=== PATIENT | female | born 1985 | race Caucasian/White ===

== ENCOUNTER 2022-05-31 07:22 | Outpatient (REF) | payer OTHER, SELFPAY ==
--- NOTE | ~2022-05-31 | MR_ITS ---
EXAMINATION: MR SHOULDER WITHOUT CONTRAST, LEFT CLINICAL INFORMATION: Left shoulder pain, increased with movement. Popping and clicking. Weakness. COMPARISON: None TECHNIQUE: Multisequence MR imaging of the left shoulder was obtained without contrast on a high-field strength scanner. FINDINGS: ROTATOR CUFF: Intact. No muscle atrophy or fatty infiltration. BICEPS: Intact. CORACOACROMIAL ARCH: The undersurface of the acromion is minimally curved with no subacromial spur. The acromioclavicular joint is normal. Mild fluid and edema within the subacromial-subdeltoid bursa consistent with bursitis. LABRUM/CAPSULE: No displaced labral tear. Intact joint capsule. GLENOHUMERAL JOINT/MARROW: Intact articular cartilage. No acute osseous injury. MR/MR shoulder LT wo con IMPRESSION: 1. Mild subacromial-subdeltoid bursitis. 2. Otherwise unremarkable examination.
== END 2022-05-31 07:23 | disposition home or self-care (01) ==
LOC: HO.MRI 07:22
PROVIDERS: Visit Provider Nurse Practitioner Family
DX: M25.512 Pain in left shoulder (principal)
CPT/HCPCS: 73221

== ENCOUNTER 2024-11-28 09:03 | Outpatient (AMB) | payer BC, SELFPAY ==
--- NOTE | 2024-11-28 09:07 | A.SPINEOV_ITS ---
Vital Signs 11/28/24 09:10 Height 5 ft 4 in Weight 130 lb BMI 22.3 Intake Visit Reasons: Back pain Intake Note: Ms. Dominguez is here today c/o Right sided low back pain. 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 Required: No Allergies cefaclor [From Ceclor] Allergy (Severe, Verified 11/28/24 09:12) Unknown Physical Exam Vital Signs: BMI result Body Mass Index 22.3 Assessment & Plan Assessment & Plan (1) Back pain: Code(s): M54.9 - Dorsalgia, unspecified Category: Medical Qualifiers: Back pain laterality: right Back pain location: low back pain Sciatica presence: with sciatica Plan: Dear colleague On 11/28/2024 I saw for 2nd opinion Omayra Dominguez with a chief complaint of predominantly right-sided back pain HPI: This is a 39-year-old otherwise healthy female had a snowboard accident in last November and since that time is suffering from severe discomfort predominantly on the right side around the SI joint area. Sitting very uncomfortable. Her sleep is not disturbed. When the pain flares up it can radiate down her right leg. No weakness or numbness. She tried extensive physical therapy without success. Chiropractic therapy is not helpful either. An injection in the SI joint did not provide relief. She has not tried an SI joint belt. PMH: Right shoulder surgery Medications: None Allergies: Ceclor Social history: Nonsmoker. 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 Not in obvious agony. SI provocative tests are negative. Straight leg raise is negative. No motor or sensory deficits. His pain on palpation of the right SI joint area Radiological Studies: A CT scan of the lumbar spine shows no fractures Impression/Plan: This patient is suffering from persistent predominantly right- sided pain around the SI joint area with intermittent radiation down her right leg. Differential diagnosis is sacroiliitis versus lumbar radiculopathy. I would like to order an MRI of the lumbar spine and to refer to Dr. Díaz for further evaluation of her SI joint. I explained to the patient that sacroiliitis usually characterized by a 70% or more response to a diagnostic SI joint block. She will return to my office if the SI joint block is successful. Thank you for allowing me to participate in your patients care. total time spent was 50 minutes in counseling ,coordination of plan, personal review of imaging, surgical decision making and subsequent plan Miguel A Loja MD, PhD Spine Fellowship Trained Neurosurgeon Director, [facility] (2) Sacroiliitis, not elsewhere classified: Code(s): M46.1 - Sacroiliitis, not elsewhere classified Category: Medical Plan: d Orders: Orders MR lumbar spine wo con Today M54.9 - Dorsalgia, unspecified Referrals Pain Management Referral M46.1 - Sacroiliitis, not elsewhere classified Coding Level of Care Code New Pt Level 4 (48877) Diagnoses Back pain M54.9 Back pain laterality: right Back pain location: low back pain Sciatica presence: with sciatica Sacroiliitis, not elsewhere classified M46.1
[2024-11-28 09:10] VITALS: BMI 22.3
--- OUTSIDE RECORDS SUMMARY | 2024-11-28 09:15 | XMS_ITS | Patient Health Record ---
[facility] Address [address] [place] [address] Care Team Providers Care Certified Massage Therapist Name Role Phone Dinah Stevenson MD Primary Care Provider Eddie Gomes Unavailable [phone] Allergies Allergen (clinical drug ingredient) Drug/Non Drug Allergy documented on EMR Reaction Allergy Type Onset Date Status Ceftin Unknown Drug Allergy Active Keflex Unknown Drug Allergy Active cefaclor Cefaclor Unknown Drug Allergy Active Reason For Referral No Information Medications Medication SIG (Take, Route, Fr equency, Duration) Notes Start Date End Date Status Altavera Control Active Ibuprofen PRN 400mg Active Voltaren 1 % as directed Externally 11/02/2023 Active Naproxen Sodium PRN 400mg Acti ve Immunizations Vaccine Route Administration Date Status Comme nts COVID-19 Moderna Vaccine Unknown 08/27/2021 Administere d 01/05/21,02/02/21 Social History Tobacco Use: Social History Observation Description Date Details (start date - stop date) Never Smoker NA - NA Tobacco Use/Smoking Question Answer Notes Are you a: nonsmoker Additional Findings: Tobacco Non-User Current no n-smoker Alcohol Screen Question Answer Notes Did you have a drink containing alcohol in the p ast year? No Points 0 Interpretation Negative Tobacco use other than smoking: Question Answer Notes Are you an other tobacco user? No Problems Problem Type SNOMED Code ICD Code Onset Dates Problem Status W/U Status Risk Notes Problem Acquired hallux valgus (15406063) Hallux valgus (acquired), left foot (M20.12) Active confirmed Problem Acquired hallux valgus (14235360) Hallux valgus (acquired), right foot (M20.11) Active confirmed Problem Acquired hammer toe of right foot ([id number] [id number]) Other hammer toe(s) (acquired), right foot (M20.41) Active confirmed Problem Acquired hallux rigidus (3197193) Hallux rigidus, right foot (M20.21) Active confirmed Plan Of Treatment Pending Test Test Name Order Date X ray : Foot, left 3V 11/25/2022 X ray : Foot, right 3V 11/02/2023 Insurance Providers Payer Name Payer Address Payer Phone Subscriber Number Group Number Insured Name Patient Relationship to Insured Coverage Start Date Coverage End Date [facility] Others [address] [place] [address] [phone] [id number] Omayra Dwyer Self - patient is the insured Medical (General) History Medical History History ICD Code Headaches/Migraines Plantar warts Surgical History Surgery Date(Month/Year)
--- OUTSIDE RECORDS SUMMARY | 2024-11-28 09:15 | XMS_ITS | Encounter Summary ---
Author Organization [employer] Address [address] [place] [address] [address] [place] [address] Care Team Providers Care Cafeteria Food Server Name Role Phone Chary Brooks CNP Primary Care Provider [phone] Encounter Details Date Type Department Care Team (Latest Contact Info) Description 07/31/2019 Abstract [facility] CONVERSIONS Dental, Provider, DDS Social History Tobacco Use Types Packs/Day Years Used Date Smoking Tobacco: Never Assessed Comments Unknown Sex and Gender Information Value Date Recorded Sex Assigned at Female 05/05/2023 9:04 AM EDT Legal Sex Female 5:36 PM EDT Gender Identity Female 05/05/2023 9:04 AM EDT Sexual Orientation Straight 05/09/2023 8: 14 AM EDT documented as of this encounter Plan of Treatment Upcoming Encounters Date Type Department Care Team (Late st Contact Info) Description 09/17/2025 4:30 PM EST Office Visit [facility] [address] [place] [address] Chary Brooks CNP [address] [place] [address] documented as of this encounter Visit Diagnoses Not on filedocumented in this encounter Care Teams Cafeteria Food Server Relationship Specialty Start Date End Date Chary Brooks CNP [address] [place] [address] PCP - General Family Medicine 04/24/23 documented as of this encounter
--- OUTSIDE RECORDS SUMMARY | 2024-11-28 09:15 | XMS_ITS ---
Author Organization [facility] Address [address] [place] [address] Care Team Providers Care Head Start Director Name Role Phone Dinah Stevenson MD Primary Care Provider Eddie Gomes [phone] Allergies Allergen (clinical drug ingredient) Drug/Non Drug Allergy documented on EMR Reaction Allergy Type Onset Date Status Ceftin Unknown Drug Allergy Active Keflex Unknown Drug Allergy Active cefaclor Cefaclor Unknown Drug Allergy Active REASON FOR VISIT Foot pain Medications Medication SIG (Take, Route, Fr equency, Duration) Notes Start Date End Date Status Altavera Control Active Ibuprofen PRN 400mg Active Voltaren 1 % as directed Externally 11/02/2023 Active Naproxen Sodium PRN 400mg Acti ve Social History Tobacco Use: Social History Observation [...] Are you an other tobacco user? No Vital Signs Height 5 ft 4 in in 11/02/2023 Weight 120 lbs 11/02/2023 BMI 20.6 kg/m2 11/02/2023 Encounters Encounter Location Date Provider Diagnosis [facility] [address] [place] [address] 11/02/2023 Eddie Bautista Peroneal tendinitis, right M76.71 ; Pain in right foot M79.671 and Metatarsalgia, right foot M77.41 Assessments Encounter Date Diagnosis (ICD Code) Assessment Notes Treatment Notes Treatment Clinical Notes Section Notes 11/02/2023 Peroneal tendinitis, right (ICD-10 - M76.71) 11/02/2023 Pain in right foot (ICD-10 - M79.671) 11/02/2023 Metatarsalgia, right foot (ICD-10 - M77.41) Plan Of Treatment Medication Medication Name Sig Start Date Stop Date Notes Voltaren 1 % as directed Externally 11/02/2023 Pending Test Test Name Order Date X ray : Foot, right 3V 11/02/2023 Next Appt Details Follow Up: prn, Reason: Progress Notes * Omayra CALABRESE EDOB: [birth year] (37 yo F)Acc No.[id number]:11/02/2023 Progress Note Patient:?Omayra Calabrese Provider:?Eddie Bautista DPM :1985???Age:37 Y???Sex:Female D ate:11/02/2023 Address[address] [facility], [place], [place] Pcp:Dinah Stevenson MD Subjective: * Chief Complaints: * ???Foot pain * HPI: ???Foot Pain:?Nature:?aching, dull, sharp.?Location?Outside, Midfoot, Rearfoot, Right .?Duration:?several months.?Onset/Cause:?unknown, denies trauma.?Course:?worse.?Aggrevated:?any pressure, standing, walking; certain motion.?Treatments:?stretching.?Quality/Severity?5, scale 1-10.? * ROS:?General/Constitutional:?Nausea?denies, denies.?Vomiting?denies, denies.?Hunger Thirst?denies, denies.?Loss appetite?denies, denies.?Chills?denies, denies.?Fatigue?denies, denies.?Fever?denies, denies.?Night Sweats denies, denies.?Unexplained weight loss?denies, denies.?Unexplained weight gain?denies.?Ophthalmologic:?Blurred vision?denies.?Red eye?denies.?HEENTM:?Dentures?denies, denies.?Dizziness?denies, denies.?Glasses/contacts?denies, denies.?Retinopathy?denies, denies.?Blurred/double vision?denies, denies.?TMJ?denies, denies.?Discharge/drainage?denies, denies.?Implants?denies, denies.?Sore throat?denies.?Dental implants?denies.?Hard of hearing ?denies, denies.?Difficulty chewing/swallowing/speaking?denies, denies.?Nose bleeds?denies, denies.?Sore mouth?denies, denies.?Swollen glands?denies.?Respiratory:?On Oxygen?denies, denies.?Pneumonia/pleurisy?denies, denies.?Bronchitis?denies, denies.?Emphysema?denies, denies.?Coughing?denies, denies.?Cough blood?denies, denies.?Shortness of breath?denies, denies.?Wheezing?denies, denies.?Cardiovascular:?Pacemaker?denies, denies.?MVP?denies, denies.?WPW?denies, denies.?CHF?denies, denies.?Heart attack?denies, denies.?Septal defect?denies, denies.?Rapid beat?denies, denies.?Chest pain ?denies, denies.?Atrial Fib.?denies, denies.?Murmur/Palpitations?denies, denies.?Gastrointestinal:?Hemorrhoids?denies, denies.?Stomach/Abdominal pain?denies, denies.?Dark blood stool?denies, denies.?Irritable bowel ?denies, denies.?Constipation?denies, denies.?Diarrhea?denies, denies.?Vomiting?denies.?Hematology:?Swelling?denies, denies.?Clots?denies.?Varicose Veins?denies.?Bruising?denies, denies.?Bleeding problem?denies, denies.?Genitourinary:?Blood urine?denies, denies.?Frequent/Painfu/urination/bladder control?denies, denies.?Kidney stones?denies, denies.?Infection (UTI)?denies, denies.?Nephropathy?denies, denies.?sex trans dis (STD)?denies.?Prostate?denies.?Musculoskeletal:?Hammertoes?denies, denies.?Bunions?denies, denies.?Scoliosis/kyphosis?denies.?Back Pain?denies.?Muscle Cramps/ Resting?denies.?Muscle cramps / walking?denies, denies.?Generalized aches and pains?admits, denies.?Weakness?denies, denies.?Integ.:?Barnes?denies, denies.?Scars?denies, denies.?Corns/calluses?denies, denies.?Ingrown nails?denies, denies.?Painful nails?denies, denies.?Open Sores?denies.?Rashes?denies, denies.?Neurologic:?Difficulty sleeping?denies, denies.?Bipolar?denies.?Brain disorder?denies, denies.?Numbness?denies.?Balance trouble?denies, denies.?Confusion?denies, denies.?Fainting/blackouts?denies, denies.?Headache?denies.?Tingling?denies.?Tremors?denies, denies.? * Medical History:? * Surgical History:?No Surgica l History documented. * Hospitalization/Major Diagno stic Procedure:?No Hospitalization History. * Family History:?Mother: richardson schwartz, Foot problems, diagnosed with Other specified conditions influencing health status.?Father: alive.?Maternal Grand Mother: Cancer, diagnosed with Other malignant neoplasm of unspecified site.? * Social History:?Tobacco Use:?Tobacco Use/Smoking?Are you a:?nonsmoker ?Additional Findings: Tobacco Non-User?Current non-smoker ?Tobacco use other than smoking?Are you an other tobacco user??No ???Drugs/Alcohol:?Alcohol Screen?Did you have a drink containing alcohol in the past year??No ?Points?0 ?Interpretation?Negative * Medications:?TakingAltavera , Notes: ControlIbuprofen , Notes: PRN 400mgNaproxen Sodium , Notes: PRN 400mgMedication List reviewed and reconciled with the patientTaking Altavera , Notes: ControlTaking Ibuprofen , Notes: PRN 400mgTaking Naproxen Sodium , Notes: PRN 400mgMedication List reviewed and reconciled with the patient * Allergies:?Keflex: AllergyCe ftin: AllergyCefaclor: Allergyyes[Allergies Verified] Objective: * Vitals:?Ht:5 ft 4 in, Wt:120 , BMI:20.6, Shoe size:7.5-8, Ht-cm: 162.56 cm, Wt- k.43 kg. * Examination: ???General Examination: ?GENERAL APPEARANCE:?pleasant, alert, well nourished, well developed, well hydrated, with good attention to hygene/body habitus, and in no acute distress.?ORIENTED:?person,place, and time.?Neurological: ?SENSORY:?Neurological exam is normal, pain sensation normal, vibration sensation intact, pinprick sensation is normal in the lower extremities, denies, tingling, burning, anesthesia, paresthesia, hyperesthesia, B/L, Neurological exam demonstrates pop right peroneal tendon and into 5th mt base.?TINEL'S COMPRESSION:?Negative tarsal tunnel, yuri pedis, and medial calcaneal nerves B/L.?BABINSKI REFLEX:?absent.?Neuroma Pain: ?PALPATION:?No interspace pain noted on palpation.?Vascular: ?DP PULSES:?11/13, B/L.?PT PULSES:?11/13, B/L.?CAPILLARY FILL TIME:?3 secs. per digit, B/L.?SKIN TEMPERTURE GRADIENT OF THE LOWER EXTERMITIES:?warm to cool, proximal to distal, B/L.?HAIR GROWTH/TEXTURE/ELASTICITY/TURGOR:?normal, B/L.?PIGMENTATION:?normal, B/L.?EDEMA:? /, Right 5th mt base.?TELANGECTASIA:?absent.?VARICOSITIES:?absent.?Dermatologic: ?SKIN FINDINGS:?Skin exam reveals normal texture, elasticity, and tugor. There are no masses. The interspaces are clear, B/L .?Orthopedic: ?MUSCLE STRENGTH:?5/5 all groups in a symmetrical fashion , B/L.?GAIT ABNORMALITY:?pronated, abducted, B/L.?X-Rays - IMAGING REPORT: ?Clinical Indication(s):? Evaluate Biomechanical Deformity.?Views:? 3 views of Foot, RIGHT.?Findings:? normal bone and soft tissue density consistent for patients age and sex, hypertrophy of 5th MT Base/Styloid process--mild.?Foot structure:? reveals excess pronation with, anterior break in cyme line-mild.? Assessment: * Assessment: 1.?Pain in right foot - M79. 671?2.?Peroneal tendinitis, right - M76.71 (Primary)?3.?Metatarsalgia, right foot - M77.41? Plan: * Treatment: 2.?Pain in right foot?Imaging: X ray : Foot, right 3V * Procedure Codes:?64169 X-RAY EXAM OF RIGHT FOOT 3V, Modifiers: 26 , RT * Preventive Medicine:? ??Counseling:?Discussion:?-14: Office or other outpatient visit for the evaluation and management of an established patient, which required a medically appropriate history and/or examination and MODERATE level of DECISION MAKING for: 1 OR MORE CHRONIC PROBLEM(S) THATS WORSENING, 2 STABLE CHRONIC PROBLEMS, A NEWLY DIAGNOSED PROBLEM WITH UNCERTAIN PROGNOSIS, AN ACUTE COMPLICATED INJURY WITH MULTIPLE TREATMENT OPTIONS, OR AN ACUTE PROBLEM WITH ACCOMPANYING SYSTEMIC SYMPTOMS, THAT POSE(S) A MODERATE RISK OF MORBIDITY. THIS CONDITION MAY ALSO INCLUDE RX DRUG MANAGEMENT, OR A DECISON FOR MINOR SURGERY. The visit on the day of the encounter encompassed interpreting the data and educating the patient as to the nature of their condition, treatment options available according to their individual PMH, meds, allergies, and overall health/living conditions, as well as any potential risks or complications that may occur from a failure to adhere to, and participate in, the recommended course of therapy. The discussion included a complete verbal, and/or written explanation of the examination results, any x-rays taken, the proposed diagnosis, and outline of the treatment plan. A schedule for future care needs was also explained. The patient verbalized an understanding of the instructions at this time and agreed to be an active participant in their treatment. If the patient should think of any questions or concerns after the visit, I have encouraged the patient to call the office.?P.R.I.C.E.:?The patient was counseled on the use of P.R.I.C.E. and NSAIDS (if well tolerated) to aid in the recovery from their painful condition.?Physical Therapy:?Discussed the potential short and terminal superintendent benefits of physical therapy including pain relief, improved function for activity of daily life, return to exercise, increased quality of life. We discussed the usual/customary PT treatment schedule of 2-3 times per week for 4 weeks to as much as 12 weeks depending on insurance approval/coverage. We discussed various PT treatment modalities including, but not limited to, gate training, muscular stabilization, stretching, deep tissue therapeutic massage, ultrasound, TENS, iontophoresis, fluidotherapy, laser therapy, hydrotherapy, contrast ice/heat bath, and passive as well as active ROM exercises. Questions re: PT including visit amounts, rates of success, and goals were answered to the patient's satisfaction. The patient verbally confirmed the medical necessity and use of PT therapy treatment for their MSK condition, Pt defers on therapy at this time.? * Follow Up:?prn * Images: * Sign off status: Completed true * Provider:?Eddie Bautista DPM Date:? 024 Generated for Karen heredia/Pilo/Franchesca on:?11/28/2024 09:15 AM EST History and Physical Notes * HPI (History of Present Illness) Category Sub-Category Detail Notes Category Not es Foot Pain Aggrevated: any pressure, standing, walk ing; certain motion Onset/Cause: unknown, denies myra felipe Course: worse Duration: several months Nature: aching, dull, sharp Treatments: stretching Quality/Severity 5, scale 1-10 Location Outside, Midfoot, Re arfoot, Right Examination Category Sub-Category Detail Notes Category Not es Neuroma Pain PALPATION: No interspace pain noted on palpation Neurological SENSORY: Neurological exa m is normal, pain sensation normal, vibration sensation intact, pinprick sensation is normal in the lower extremities, denies, tingling, burning, anesthesia, paresthesia, hyperesthesia, B/L, Neurological exam demonstrates pop right peroneal tendon and into 5th mt base BABINSKI REFLEX: absent TINEL'S COMPRESSION: Negative tarsal neelam nixon, yuri pedis, and medial calcaneal nerves B/L Dermatologic SKIN FINDINGS: Skin exam reveal s normal texture, elasticity, and tugor. There are no masses. The interspaces are clear, B/L Orthopedic GAIT ABNORMALITY: pronated, abducted, B/L MUSCLE STRENGTH: 5/5 all groups in a symmetrical fashion , B/L General Examination GENERAL APPEARANCE: pleasant , alert, well nourished, well developed, well hydrated, with good attention to hygene/body habitus, and in no acute distress ORIENTED: person,place, and ti me Vascular DP PULSES (B): 2/4, B/L PT PULSES (B): 2/4, B/L CAPILLARY FILL TIME: 3 secs. per digit, B/L TEMPERTURE GRADIENT (C): warm to cool, p roximal to distal, B/L TROPHIC CONDITION-TEXTURE/ELASTICITY/TURGOR/HAIR GROWTH (B): normal, B/L EDEMA (C): 1/, Right 5th mt ba se TELANGECTASIA: absent VARICOSITIES: absent PIGMENTATION: normal, B/L X-Rays - IMAGING REPORT Findings: normal b one and soft tissue density consistent for patients age and sex, hypertrophy of 5th MT Base/Styloid process--mild Foot structure: reveals excess prona tion with, anterior break in cyme line-mild Views: 3 views of Foot, RIG HT Clinical Indication(s): Evaluate Biomech anical Deformity
--- OUTSIDE RECORDS SUMMARY | 2024-11-28 09:15 | XMS_ITS | Encounter Summary ---
Author Organization [employer] Address [address] [place] [address] [address] [place] [address] Care Team Providers Care Maintenance Worker House Trailer Name Role Phone Chary Brooks CNP Primary Care Provider [phone] Encounter Details Date Type Department Care Team (Latest Contact Info) Description 01/23/2019 Abstract [facility] CONVERSIONS Dental, Provider, DDS Social [...] Description 09/17/2025 4:30 PM EST Office Visit [facility] [address] [place] [address] Chary Brooks CNP [address] [place] [address] documented as of this encounter Visit Diagnoses Not on filedocumented in this encounter Care Teams Maintenance Worker House Trailer Relationship Specialty Start Date End Date Chary Brooks CNP [address] [place] [address] PCP - General Family Medicine 04/24/23 documented as of this encounter
--- OUTSIDE RECORDS SUMMARY | 2024-11-28 09:15 | XMS_ITS | Encounter Summary ---
Author Organization [employer] Address [address] [facility] 7[address] [place] [address] Care Team Providers Care Rear Admiral Name Role Phone Chary Brooks DOROTHY Primary Care Provider [phone] Encounter Details Date Type Department Care Team (Late st Contact Info) Description 09/16/2024 Orders Only [facility] [address] [place] [address] Provider, MD Margarito Social History Tobacco Use Types Packs/Day Years Used Date Smoking Tobacco: Never Smokeless Tobacco: Never Alcohol Use Standard Drinks/Week Comments Not Currently 0 (1 standard drink = 0.6 oz pur e alcohol) Housing Stability Answer Date Recorded What is your housing situation today? I have lopez sun 09/11/[address] you li ve. Do you have problems with any of the following? None of the above 09/11/2024 Food Insecurity Answer Date Recorded Within the past 12 months, y ou worried that your food would run out before you got money to buy more: Never True 09/11/2024 Within the past 12 months,th e food you bought just didn't last and you didn't have enough money to get more: Never True 12/2023 Transportation Answer Date Recorded In the past 12 months, has l ack of transportation kept you from medical appts, meetings, work or from getting things needed for daily living? No 09/11/2024 Utilities Answer Date Recorded In the past 12 months, has t he electric, gas, oil or water company threatened to shut off services in your home? No 09/11/2024 Depression Answer Date Recorded Patient Health Questionnaire-2 Score 0 09/11/2024 Internet Access Answer Date Recorded Internet Access Q1 Yes 09/11/2024 Internet Access Q2 Not on file 09/11/2024 Comments Unknown Sex and Gender Information Value [...] Description 09/17/2025 4:30 PM EST Office Visit [facility] MEDICAL [address] [facility] [place] [address] Chary Brooks CNP [address] [facility] [place] [address] documented as of this encounter Procedures Procedure Name Priority Date/Time Associated Diagnosis Comments CT LUMBAR SPINE W CONTRAST Routine 06/15/2024 9:53 AM EDT HM PAP/HPV Routine 02/02/2024 9:54 AM EDT documented in this encounter Results * CT Lumber Spine w/ Contrast (06/15/2024 9:53 AM EDT) Anatomical Region Laterality Modality Spine, L-spine Computed Tomogra phy us Historical Provider IMG CT PROCEDURES Final R esult * HM PAP/HPV (02/02/2024 9:54 AM EDT) us Historical Provider HEALTH MAINTENANCE Final Result documented in this encounter Visit Diagnoses Not on filedocumented in this encounter Care Teams Rear Admiral Relationship Specialty Start Date End Date Chary Brooks CNP [address] [facility] [place] [address] PCP - General Family Medicine 04/24/23 documented as of this encounter
--- OUTSIDE RECORDS SUMMARY | 2024-11-28 09:15 | XMS_ITS | Data Portability ---
Author Organization [facility], [facility] [employer] Address [address] [place] [address] Care Team Providers Care Branch Service Associate Name Role Phone CLAUDETTE FRANCOIS Primary Care Provider Assessment Encounter Date Assessment Date Assessment LastModified by Organization Details LastModified Time 11/02/2024 11/02/2024 Assessment: Introduced prone periscapular strengthening, patient able to tolerate well with mild fatigue reported post, mild upper trap compensation initially but able to correct after verbal and tactile cues. Moderate fatigue with SL ER. Plan: Continued PT is recommended at 2x/week for 6 weeks to decrease pain, improve ROM, increase strength, and optimize shoulder mechanics for functional ADL's. PROM/AAROM/AROM now No lifting heavier than coffee cup x 4-6 weeks Strengthening at 4-6 weeks once full ROM Not available 11/02/2024 09:22:36 11/05/2024 11/05/2024 Assessment: Patient fatigued with all periscap strengthening. She tolerated all prone stability ball exercises with decreased core stability . Plan: Continued PT is recommended at 2x/week for 6 weeks to decrease pain, improve ROM, increase strength, and optimize shoulder mechanics for functional ADL's. PROM/AAROM/AROM now No lifting heavier than coffee cup x 4-6 weeks Strengthening at 4-6 weeks once full ROM Not available 11/05/2024 18:54:46 11/07/2024 11/07/2024 Assessment: Patient continues to fatigue with all periscap strengthening. Decreased shoulder abduction weight to improve mechanics. Updated HEP for foam roller and stability ball exercises. Plan: Continued PT is recommended at 2x/week for 6 weeks to decrease pain, improve ROM, increase strength, and optimize shoulder mechanics for functional ADL's. PROM/AAROM/AROM now No lifting heavier than coffee cup x 4-6 weeks Strengthening at 4-6 weeks once full ROM Not available 11/07/2024 17:38:13 11/12/2024 11/12/2024 Assessment: Tolerates scapular clocks without increased pain and moderate fatigue reported post, requires tactile cues initially to prevent lumbar extension/scapu lar winging, corrects well after cues. Plan: Continued PT is recommended at 2x/week for 6 weeks to decrease pain, improve ROM, increase strength, and optimize shoulder mechanics for functional ADL's. PROM/AAROM/AROM now No lifting heavier than coffee cup x 4-6 weeks Strengthening at 4-6 weeks once full ROM [email or web address] Not available 11/13/2024 08:06:44 11/14/2024 11/14/2024 Assessment: Moderate upper trap compensation with Y raises with resistance, able to complete without resistance with appropriate mechanics. Continues to fatigue quickly with scapular clocks and scap wall slides. Plan: Continued PT is recommended at 2x/week for 6 weeks to decrease pain, improve ROM, increase strength, and optimize shoulder mechanics for functional ADL's. PROM/AAROM/AROM now No lifting heavier than coffee cup x 4-6 weeks Strengthening at 4-6 weeks once full ROM [email or web address] Not available 11/14/2024 16:24:25 Plan of Treatment Reminders Order Date Submit Date Provider Last Modified By Organization Details Last Modified Time Details Appointments PT FOLLOW -UP 025 04:30PM Hayde Landrum, PT Not available Not available Not available PT FOLLOW -UP 025 08:30AM Ladonna Frey FISH CONSERVATIONIST Not available Not available Not available PT FOLLOW -UP 025 04:30PM Hayde Diallo, PT Not available Not available Not available PT FOLLOW -UP 025 04:00PM Hayde Sawyer, PT Not available Not available Not available Lab None record ed. Referral None record ed. Procedures None record ed. Surgeries None record ed. Imaging None record ed. Medication Orders None record ed. Patient TargetsNo targets recorded. Patient InstructionsNo instructions recorded. Reason for Referral None Reported. 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 Procedures Surgical History Date Name Laterality Status Provider Name and Address Organization Details Recorded Time 5 46410 Therapeutic Exercise (1:1) completed Hayde Diallo, PT [address], [place], [address], [facility] 10/31/2024 10:21:10 5 03005: Hot or Cold Pack completed Hayde Diallo, PT [address], [place], [address], [facility] 10/31/2024 10:21:10 5 45847 Therapeutic Exercise (1:1) completed Hayde Diallo, PT [address], [place], [address], [facility] 10/24/2024 10:38:01 5 07498: Hot or Cold Pack completed Hayde Sawyer, PT [address], [place], [address], [facility] 10/24/2024 10:38:01 5 85881 Therapeutic Exercise (1:1) completed Ladonna Shante, FISH CONSERVATIONIST [address], [place], [address], [facility] 10/22/2024 18:32:59 5 80716: Hot or Cold Pack completed Ladonna Shante, FISH CONSERVATIONIST [address], [place], [address], [facility] 10/22/2024 18:33:13 5 00764 Therapeutic Exercise (1:1) cancelled Hayde Diallo, PT [address], [place], [address], [facility] 10/17/2024 10:28:14 5 76581: Hot or Cold Pack cancelled Hayde Sawyer, PT [address], [place], [address], [facility] 10/17/2024 10:28:14 5 52193 Therapeutic Exercise (1:1) completed Hayde Diallo, PT [address], [place], [address], [facility] 10/15/2024 10:22:32 5 39424: Hot or Cold Pack completed Hayde Diallo, PT [address], [place], [address], [facility] 10/15/2024 10:22:32 5 02634 Therapeutic Exercise (1:1) completed Hayde Sawyer, PT [address], [place], [address], [facility] 10/12/2024 09:25:21 5 72737: Hot or Cold Pack completed Hayde Sawyer, PT [address], [place], [address], [facility] 10/11/2024 18:48:41 4 87113 Therapeutic Exercise (1:1) completed Hayde Sawyer, PT [address], [place], [address], [facility] 10/08/2024 15:03:29 4 29863: Hot or Cold Pack completed Hayde Diallo, PT [address], [place], [address], [facility] 10/08/2024 18:39:53 4 33365 Therapeutic Exercise (1:1) completed Hayde Diallo, PT [address], [place], [address], [facility] 09/26/2024 17:19:50 4 04851: Hot or Cold Pack completed Hayde Diallo, PT [address], [place], [address], [facility] 09/26/2024 17:19:50 4 45552 Therapeutic Exercise (1:1) completed Hayde Diallo, PT [address], [place], [address], [facility] 09/24/2024 18:42:47 4 33391: Hot or Cold Pack completed Hayde Diallo, PT [address], [place], [address], [facility] 09/24/2024 10:40:39 4 97728 Therapeutic Exercise (1:1) completed Ladonna Shante, FISH CONSERVATIONIST [address], [place], [address], [facility] 09/21/2024 09:43:39 4 05451: Hot or Cold Pack completed Ladonna Shante, FISH CONSERVATIONIST [address], [place], [address], [facility] 09/21/2024 09:43:50 4 22752 Therapeutic Exercise (1:1) completed Ladonna Shante, FISH CONSERVATIONIST [address], [place], [address], [facility] 09/17/2024 18:45:34 4 91591: Hot or Cold Pack completed Ladonna Shante, FISH CONSERVATIONIST [address], [place], [address], [facility] 09/17/2024 18:45:45 4 52957 Therapeutic Exercise (1:1) completed Hayde Sawyer, PT [address], [place], [address], [facility] 09/14/2024 09:15:12 4 19753: Hot or Cold Pack completed Hayde Diallo, PT [address], [place], [address], [facility] 09/14/2024 09:12:25 4 34958 Therapeutic Exercise (1:1) completed Hayde Sawyer, PT [address], [place], [address], [facility] 09/12/2024 18:53:38 4 81126: Low complexity PT Eval completed Hayde Diallo, PT [address], [place], [address], [facility] 09/12/2024 13:09:53 4 Sports Shoulder completed Yvonne Fuentes PA-C [address], [place], [address], [facility] 03/20/2024 09:59:34 Imaging Results None recorded. Procedure Notes None recorded. Medical Equipment None Reported. Allergies Allergen ID Allergen Name Allergen Category Reaction Reaction Severity Criticality Documentation Date Start Date Code Code System Note Provider Name and Address Organization Details Recorded Time 624850 Ceclor medicatio n Not available Not available Not available 03/19/2024 5 [facility] 14:54:18 Medications Name Sig Start Date Stop Date Status Note LastModified by Organization Details LastModified Time amoxicillin 500 mg capsule TAKE 1 CAPSULE BY MOUTH THREE TIMES A DAY FOR 8 DAYS 10/11 completed Not Available Not Available Not Available prednisone 10 mg tablet TAKE 4 TABS ONCE A DAY FOR 5 DAYS THEN 2 TABS ONCE A DAY FOR 5 DAYS THEN 1 TAB ONCE A DAY FOR 5 DAYS 10/11 completed Not Available Not Available Not Available triamcinolo ne acetonide 0.1 % topical cream APPLY TO EAR TWICE A DAY NEEDED FOR IRRITATIO N. active Not Available Not Available No t Available naproxen sodium 220 mg tablet 2 tablets as needed by oral route. active Not Available Not Available No t Available ibuprofen 200 mg tablet 2 tablets as needed by oral route. active Not Available Not Available No t Available ketoconazol e 2 % topical cream active Not Available Not Available Not Available naproxen 500 mg tablet TAKE 1 TABLET BY MOUTH TWICE A DAY 10/11 completed Not Available Not Available Not Available oxycodone 5 mg tablet TAKE 1-2 TABLETS EVERY 4-6 HOURS NEEDED FOR 5 DAYS 10/11 completed Not Available Not Available Not Available cyclobenzap rine 5 mg tablet PLEASE SEE ATTACHED FOR DETAILED DIRECTION S 10/11 completed Not Available Not Available Not Available multivitami n 2023 active Not Available Not Available Not Avai lable GaviLyte-G 236 gram-22.74 gram-6.74 gram-5.86 gram oral solution active Not Available Not Available Not Available Altavera (28) 0.15 mg-0.03 mg tablet TAKE 1 TABLET BY MOUTH EVERY DAY active Not Available Not Available No t Available Vitals None Recorded Social History Question Answer Notes LastModified by Organizat ion Details LastModified Time Tobacco Smoking Status Never Smoker KENDRICK yao [place] - [facility] 03/19/2024 11:52:20 What Is Your Level Of Alcohol Consumption? None Information not available 03/19/2024 How Many Times Per Week Do You Consume Alcohol? Less Than 1 Time Per Week Information not available 03/19/2024 Do You Or Have You Ever Used E-cigarettes Or Vape? Never Used Electronic Cigarettes Information not available 03/19/2024 Which Of Your Hands Is Dominant? Right Information not available 03/19/2024 What Is Your Relationship Status? Domestic Partner [email or web address] Information not available 03/19/2024 Do You Use Any Illicit Or Recreational Drugs? No Information not available 03/19/2024 Do You Or Have You Ever Used Any Other Forms Of Tobacco Or Nicotine? No jason Information not available 03/19/2024 Sex: Unknown Functional Status None recorded. Mental Status None recorded. Family History Nothing Reported. Medical History Condition Response Allergies/Hayfever N Coronary Artery Disease N Anxiety/Depression N Breathing or lung disorders N Emphysema N Nerve Disorders N Thyroid Problems N COPD N Pacemaker N Anemia N Kidney/Bladder Problems N Vascular Disease N Heart Trouble N Heart Attack (AL) N Gastrointestinal Disease N Cholesterol N Diabetes N Autoimmune disease N Bleeding Disorder N Orthotics N Arthritis N Seizures/Epilepsy N Blood Clot N AIDS/HIV N Congestive Heart Failure (CHF) N Acid Reflux (GERD) N Cancer N Stroke N Asthma N Circulation Problems N Peripheral Vascular Disease N Sleep Apnea N Hepatitis N Heart Disease N Rheumatoid Arthritis N Arrhythmia N Pulmonary Embolism N Headaches Y Fibromyalgia N Hypertension N Osteoporosis N Gynecological HistoryNo gynecological history recorded. Obstetrics History GPAL:G 0 P 0 0 0 0 Past Encounters Encounter ID Performer Location Encounter Start Date Encounter Closed Date Diagnosis/Indication Diagnosis SNOMED-CT Code Diagnosis ICD10 Code Diagnosis Note [id number] MIKI Perez [address] [place] [address] 03/19/2024 14:47:34 04/09/2024 09:13:22 Pain of left shoulder joint [id number] 2645251 M25.512 Impingemen t syndrome of left shoulder region 1288941496 24439 M75.42 [id number] MD Ho Diaz [address] [place] [address] 06/20/2024 13:09:18 07/13/2024 09:26:50 Impingement syndrome of left shoulder region 8419999073 19195 M75.42 [id number] MIKI Perez [address] [place] [address] 08/31/2024 09:06:43 09/19/2024 10:14:16 Postoperative visit [id number] Z48.89 [id number] Hayde Landrum, PT [facility] [address] [place] [address] 09/12/2024 17:37:53 09/13/2024 11:17:39 Impingement syndrome of left shoulder region 4753267902 65156 M75.42 [id number] Haydemitchel Landrum, PT [facility] [address] [place] [address] 09/14/2024 08:29:22 09/14/2024 09:22:03 Impingement syndrome of left shoulder region 0146912444 77375 M75.42 [id number] Hayde Diallo, PT [facility] [address] [place] [address] 09/17/2024 17:30:35 09/18/2024 07:49:46 Impingement syndrome of left shoulder region [id number] 54701 M75.42 [id number] Hayde Diallo, PT [facility] [address] [place] [address] 09/21/2024 08:29:29 09/21/2024 09:56:01 Impingement syndrome of left shoulder region 3939600871 59202 M75.42 [id number] Hayde Diallo, PT [facility] [address] [place] [address] 09/24/2024 17:56:01 09/25/2024 07:21:15 Impingement syndrome of left shoulder region 4800542014 90987 M75.42 [id number] Hayde Diallo, PT [facility] [address] [place] [address] 09/27/2024 08:26:58 09/27/2024 09:28:04 Impingement syndrome of left shoulder region 1044502221 76569 M75.42 [id number] Hayde Diallo, PT [facility] [address] [place] [address] 10/08/2024 17:52:00 10/09/2024 06:52:59 Impingement syndrome of left shoulder region 6820780973 57593 M75.42 [id number] MIKI Hendrickson [address] [place] [address] 10/11/2024 08:21:54 10/26/2024 13:42:31 Postoperative visit [id number] Z48.89 [id number] Hayde Sawyer, PT [facility] [address] [place] [address] 10/12/2024 08:22:41 10/12/2024 12:46:32 Impingement syndrome of left shoulder region 0630330646 58804 M75.42 [id number] Hayde Sawyer, PT [place] [facility] [address] [place] [address] 10/15/2024 17:52:26 10/16/2024 07:28:05 Impingement syndrome of left shoulder region 4924705294 25117 M75.42 [id number] Hayde Sawyer, PT [place] [facility] [address] [place] [address] 10/22/2024 17:23:01 10/23/2024 07:00:12 Impingement syndrome of left shoulder region 5751699351 37977 M75.42 [id number] Hayde Diallo, PT [place] [facility] [address] [facility] [address] 10/24/2024 17:50:32 10/25/2024 15:44:47 Impingement syndrome of left shoulder region 7704031751 48670 M75.42 [id number] Hayde Sawyer, PT [place] [address] [place] [place] [address] 10/31/2024 17:51:22 11/01/2024 16:14:03 Impingement syndrome of left shoulder region 2067039873 79013 M75.42 [id number] Hayde Diallo, PT [place] [facility] [address] [place] [address] 11/02/2024 08:26:05 11/02/2024 09:33:17 Impingement syndrome of left shoulder region 4231770563 65137 M75.42 [id number] Hayde Diallo, PT [place] [facility] [address] [place] [address] 11/05/2024 17:51:18 11/06/2024 07:02:15 Impingement syndrome of left shoulder region 2021166890 50689 M75.42 [id number] Hayde Diallo, PT [place] [address] [place] [address] 11/07/2024 16:21:44 11/07/2024 17:39:18 Impingement syndrome of left shoulder region 2742932389 78572 M75.42 [id number] Hayde Landrum, PT [facility] [address] [place] [address] 11/12/2024 17:55:11 11/13/2024 11:07:39 Impingement syndrome of left shoulder region 1393452924 54509 M75.42 [id number] Hayde Landrum, PT [facility] [address] [place] [address] 11/14/2024 15:25:09 11/14/2024 16:42:28 Impingement syndrome of left shoulder region 6093668321 10653 M75.42 Health Concerns Section Related Observation LastModified by Organization Detai ls LastModified Time None Recorded Concern Status LastModified by Organization Details LastModified Time None Recorded Advance Directives Directive None Recorded Payers Encounter Date Sequence Insurance Name Policy Number Policy Kaur Covered Member ID Kaur Member ID Guarantor Name 11/02/2024 1 [place] [id number] Omayra Dominguez [id number] Omayra Dominguez 11/05/2024 1 [place] [id number] Omayra Dominguez [id number] Omayra Dominguez 11/07/2024 1 [place] [id number] Omayra Dominguez [id number] Omayra Dominguez 11/12/2024 1 [place] [id number] Omayra Dominguez [id number] Omayra Dominguez 11/14/2024 1 [place] [id number] Omayra Dominguez [id number] Omayra Dominguez Notes Date Note Type Note Provider Name and Address Organization Details Recorded Time 11/02/2024 text/html Patient reports (L) shoulder feeling good on arrival. Had a little muscle soreness after last session but was tolerable. Hayde Landrum, PT [address], [place], [address], [facility] 11/02/2024 09:22:47 11/05/2024 text/html Patient reports she continues to have muscle soreness after her last session. Ladonna Frey, FISH CONSERVATIONIST [address], [place], [address], [facility] 11/05/2024 18:55:39 11/07/2024 text/html Patient reports she had increased muscle soreness after last session. Ladonna Frey, FISH CONSERVATIONIST [address], [place], [address], [facility] 11/07/2024 17:39:03 11/12/2024 text/html Patient denies (L) shoulder pain on arrival. Continues to reports mild muscle soreness after each session. Hayde Landrum, PT [address], [place], [address], [facility] 11/13/2024 08:06:57 11/14/2024 text/html Patient reports (L) shoulder feeling good on arrival. Continues to experience mild muscle soreness after strengthening. Hayde Landrum, PT [address], [place], [address], [facility] 11/14/2024 16:27:12 OBGyn Episode No OBEpisode recorded.
--- OUTSIDE RECORDS SUMMARY | 2024-11-28 09:15 | XMS_ITS | Continuity of Care Document ---
Author Organization [place] [facility], [facility] PT Address [address] [place] [address] Care Team Providers Care Fur Cleaner Name Role Phone CLAUDETTE FRANCOIS Primary Care Provider Assessment Encounter Date Assessment Date Assessment LastModified by Organization Details LastModified Time 11/07/2024 11/07/2024 Assessment: Patient continues to fatigue with all periscap strengthening. Decreased shoulder abduction weight to improve mechanics. Updated HEP for foam roller and stability ball exercises. Plan: Continued PT is recommended at 2x/week for 6 weeks to decrease pain, improve ROM, increase strength, and optimize shoulder mechanics for functional ADL's. PROM/AAROM/MATTY M now No lifting heavier than coffee cup x 4-6 weeks Strengthening at 4-6 weeks once full ROM [email or web address] Not available 11/07/2024 17:38:13 Plan of Treatment Reminders Order Date Submit Date Provider Last Modified By Organization Details Last Modified Time Details Appointments PT FOLLOW -UP 025 04:30PM Hayde Landrum PT Not available Not available Not available PT FOLLOW -UP 025 08:30AM Ladonna Frey, [employer] Not available Not available Not available PT FOLLOW -UP 025 04:30PM Haydemitchel Landrum, PT Not available Not available Not available PT FOLLOW -UP 025 04:00PM Hayde Landrum, PT Not available Not available [...] tis of joint of left shoulder region [id number] 08 Active 2023 Norma Floresandrew yao [facility] 4 15:56:19 Internal impingement of left shoulder [id number] 105 Active 2023 Norma Floresandrew yao [facility] 4 15:56:19 Impingement syndrome of left shoulder region 8769157896861 04 Active 2023 Yvonne Rush i, PA-C [address], [place], [address], [facility] 4 09:59:40 Problem Notes None recorded. Procedures Surgical History Date Name Laterality Status Provider Name and Address Organization Details Recorded Time 5 39091 Therapeutic Exercise (1:1) completed Hayde Carlsbad, PT [address], [place], [address], [facility] 10/31/2024 10:21:10 5 58765: Hot or Cold Pack completed Hayde Carlsbad, PT [address], [place], [address], [facility] 10/31/2024 10:21:10 5 89810 Therapeutic Exercise (1:1) completed Hayde Carlsbad, PT [address], [place], [address], [facility] 10/24/2024 10:38:01 5 94745: Hot or Cold Pack completed Hayde Carlsbad, PT [address], [place], [address], [facility] 10/24/2024 10:38:01 5 17324 Therapeutic Exercise (1:1) completed Ladonna Frey, [employer]ER [address], [place], [address], [facility] 10/22/2024 18:32:59 5 73051: Hot or Cold Pack completed Ladonna Shante, [employer] [address], [place], [address], [facility] 10/22/2024 18:33:13 5 92289 Therapeutic Exercise (1:1) cancelled Hayde Diallo, PT [address], [place], [address], [facility] 10/17/2024 10:28:14 5 75063: Hot or Cold Pack cancelled Hayde Carlsbad, PT [address], [place], [address], [facility] 10/17/2024 10:28:14 5 99140 Therapeutic Exercise (1:1) completed Hayde Carlsbad, PT [address], [place], [address], [facility] 10/15/2024 10:22:32 5 87046: Hot or Cold Pack completed Hayed Diallo, PT [address], [place], [address], [facility] 10/15/2024 10:22:32 5 15488 Therapeutic Exercise (1:1) completed Hayde Diallo, PT [address], [place], [address], [facility] 10/12/2024 09:25:21 5 54307: Hot or Cold Pack completed Hayde Diallo, PT [address], [place], [address], [facility] 10/11/2024 18:48:41 4 84789 Therapeutic Exercise (1:1) completed Hayde Carlsbad, PT [address], [place], [address], [facility] 10/08/2024 15:03:29 4 46049: Hot or Cold Pack completed Hayde Carlsbad, PT [address], [place], [address], [facility] 10/08/2024 18:39:53 4 91237 Therapeutic Exercise (1:1) completed Hayde Carlsbad, PT [address], [place], [address], [facility] 09/26/2024 17:19:50 4 49916: Hot or Cold Pack completed Hayde Carlsbad, PT [address], [place], [address], [facility] 09/26/2024 17:19:50 4 77205 Therapeutic Exercise (1:1) completed Hayde Carlsbad, PT [address], [place], [address], [facility] 09/24/2024 18:42:47 4 31379: Hot or Cold Pack completed Hayde Carlsbad, PT [address], [place], [address], [facility] 09/24/2024 10:40:39 4 43842 Therapeutic Exercise (1:1) completed Ladonna Shante, G[employer] CO[employer]ER [address], [place], [address], [facility] 09/21/2024 09:43:39 4 70891: Hot or Cold Pack completed Ladonna Shante, G[employer]ER [address], [place], [address], [facility] 09/21/2024 09:43:50 4 40772 Therapeutic Exercise (1:1) completed Ladonna Shante, GEL CO[employer] SPR[employer]ER [address], [place], [address], [facility] 09/17/2024 18:45:34 4 10940: Hot or Cold Pack completed Ladonna Shante, GEL COAT SPR[employer]ER [address], [place], [address], [facility] 09/17/2024 18:45:45 4 26808 Therapeutic Exercise (1:1) completed Hayde Diallo, PT [address], [place], [address], [facility] 09/14/2024 09:15:12 4 05476: Hot or Cold Pack completed Hayde Carlsbad, PT [address], [place], [address], [facility] 09/14/2024 09:12:25 4 54466 Therapeutic Exercise (1:1) completed Hayde Carlsbad, PT [address], [place], [address], [facility] 09/12/2024 18:53:38 4 63389: Low complexity PT Eval completed Hayde Carlsbad, PT [address], [place], [address], [facility] 09/12/2024 13:09:53 4 Sports Shoulder completed Yvonne Fuentes PA-C [address] [facility], [place], [address], [facility] 03/20/2024 09:59:34 Imaging Results None recorded. Procedure Notes None recorded. Medical Equipment None Reported. Allergies Allergen ID Allergen Name Allergen Category Reaction Reaction Severity Criticality Documentation Date Start Date Code Code System Note Provider Name and Address Organization Details Recorded Time 577899 Ceclor medicatio n Not available Not available Not available 03/19/2024 5 RxNorm KENDRICK CONTRERAS [facility] 14:54:18 Medications Name Sig Start Date Stop [...] Status Never Smoker KENDRICK yao [place] - [place] [facility] 03/19/2024 11:52:20 What Is Your Level Of Alcohol Consumption? None Information not available 03/19/2024 How Many Times Per Week Do You Consume Alcohol? Less Than 1 Time Per Week [email or web address] Information not available 03/19/2024 Do You Or Have You Ever Used E-cigarettes Or Vape? Never Used Electronic Cigarettes [email or web address] Information not available 03/19/2024 Which Of Your Hands Is Dominant? Right [email or web address] Information not available 03/19/2024 What Is Your Relationship Status? Domestic Partner [email or web address] Information not available 03/19/2024 Do You Use [...] Disease N Heart Trouble N Heart Attack ([place]) N Gastrointestinal Disease N Cholesterol N Diabetes [...] SNOMED-CT Code Diagnosis ICD10 Code Diagnosis Note [id number] Hayde Landrum, PT [place] [facility] [address] [place] [address] 10/08/2024 17:52:00 10/09/2024 06:52:59 Impingement syndrome of left shoulder region [id number] 64291 M75.42 [id number] MIKI Hendrickson [facility] [address] [place] [address] 10/11/2024 08:21:54 10/26/2024 13:42:31 Postoperative visit [id number] Z48.89 [id number] Hayde Landrum, PT [place] [facility] [place] [facility] [address] [place] [address] 10/12/2024 08:22:41 10/12/2024 12:46:32 Impingement syndrome of left shoulder region 8427611348 46511 M75.42 [id number] Hayde Landrum, PT [place] [facility] [place] [facility] [address] [place] [address] 10/15/2024 17:52:26 10/16/2024 07:28:05 Impingement syndrome of left shoulder region 1871368665 81223 M75.42 [id number] Hayde Diallo, PT [place] [facility] [place] [facility] [address] [place] [address] 10/22/2024 17:23:01 10/23/2024 07:00:12 Impingement syndrome of left shoulder region [id number] 49556 M75.42 [id number] Hayde Carlsbad, PT [place] [facility] [place] [facility] [address] [place] [address] 10/24/2024 17:50:32 10/25/2024 15:44:47 Impingement syndrome of left shoulder region 4860990947 33914 M75.42 [id number] Hayde Diallo, PT [place] [facility] [place] [facility] [address] [place] [address] 10/31/2024 17:51:22 11/01/2024 16:14:03 Impingement syndrome of left shoulder region 1281987407 36805 M75.42 [id number] Hayde Diallo, PT [place] [facility] [place] [facility] [address] [place] [address] 11/02/2024 08:26:05 11/02/2024 09:33:17 Impingement syndrome of left shoulder region [id number] 80204 M75.42 [id number] Hayde Carlsbad, PT [place] [facility] [place] [facility] [address] [place] [address] 11/05/2024 17:51:18 11/06/2024 07:02:15 Impingement syndrome of left shoulder region [id number] 51372 M75.42 [id number] Hayde Diallo, PT [place] [facility] [place] [facility] [address] [place] [address] 11/07/2024 16:21:44 11/07/2024 17:39:18 Impingement syndrome of left shoulder region [id number] 71584 M75.42 Health Concerns Section Related Observation LastModified by Organization Detai ls LastModified Time None Recorded Concern Status LastModified by Organization Details LastModified Time None Recorded Payers Encounter Date Sequence Insurance Name Policy Number Policy Kaur Covered Member ID Kaur Member ID Guarantor Name 11/07/2024 1 ESTRELLA-SUNI: ESTRELLA (PPO) [id number] Omayra Manningsey [id number] Omayra Dominguez Notes Date Note Type Note Provider Name and Address Organization Details Recorded Time 11/07/2024 text/html Patient reports she had increased muscle soreness after last session. Ladonna Frey, GEL CO[employer] SPRAYER [address] [facility] [address], [place], [address], [facility] - [place] [facility] 11/07/2024 17:39:03 OBGyn Episode No OBEpisode recorded.
--- OUTSIDE RECORDS SUMMARY | 2024-11-28 09:15 | XMS_ITS | Clinical Summary ---
Author Organization [employer] Address [address] [place] [address] [address] [place] [address] Care Team Providers Care Track Coach Name Role Phone Chary Brooks DOROTHY Primary Care Provider [phone] Allergies Active Allergy Reactions Criticality Noted Date Comments Cefaclor 07/04/2018 Other reaction(s): reaction in childhood Cephalexin Unknown 06/08/2023 Medications lactase (Lactaid) 3000 units tablet Take 3,000 Units by mouth with breakfast, with lunch, and with evening meal. OTC Active simethicone (Mylicon) 125 MG chewable tablet Chew every 6 (six) hours if needed for flatulence. OTC Active ketoconazole (NIZOral) 2 % cream Apply 1 Application. topically if needed for rash. 4 Active naproxen (Naprosyn) 500 MG tablet Take 500 mg by mouth 2 times daily. 4 Active Active Problems Problem Noted Date Diagnosed Date Acquired hammer toe of right foot 05/09/2023 Valgus deformity of both great toes 05/09/2023 Irritable bowel syndrome wit h both constipation and diarrhea 04/24/2023 Migraine without aura and wi thout status migrainosus, not intractable 04/24/2023 Dry eye syndrome of both eyes 04/24/2023 Pain in left shoulder 04/24/2023 Tinea versicolor 04/24/2023 Tension headache 04/24/2023 Encounters Date Type Department Care Team Description 09/16/2024 Orders Only Ramandeep [facility] [address] [place], [place] [id number] Provider, MD Margarito 09/11/2024 1:30 PM EST Office Visit [facility] [address] [place] [address] Chary Brooks CNP Health maintenance examination (Primary Dx); Migraine without aura and without status migrainosus, not intractable; Irritable bowel syndrome with both constipation and diarrhea; Family history of colon cancer; Chronic left shoulder pain; Tension headache; Tinea versicolor; Chronic right-sided low back pain without sciatica 09/04/2024 Travel from Last 3 Months Immunizations Name Administration Dates Next Due INFLUENZA INJECTABLE QUADRIV ALANT CCIIV4 MDCK Multi-dose vial 10/22/2019 Influenza injectable quadriv alent IIV4 with preservative 07/24/2020 Influenza injectable quadriv alent preservative free 07/13/2021 Influenza, Unspecified 11/02/2011 Moderna Covid-19 Vaccine 12+ 08/27/2021,02/03/20 21,01/05/2021 TD (adult), 2 Lf tetanus tox oid, preservative free, adsorbed 04/09/2021 Tdap 06/03/2011 Family History Medical History Relation Name Comments Pancreatitis Brother 1 Alcohol-related 2018 No Known Problems Brother 2 Cancer Maternal Grandmother LD Colon cancer Maternal Grandmother LD No Known Problems Sister Relation Name Status Comments Brother 1 Alive Brother 2 Alive Father Alive Maternal Grandmother LD Mother Alive Sister Alive Social History Tobacco Use Types Packs/Day Years Used Date Smoking Tobacco: Never Smokeless Tobacco: Never Tobacco Cessation:Counseling Given: Not Answered Alcohol Use Standard Drinks/Week Comments Not Currently [...] Orientation Straight 05/09/2023 8: 14 AM EDT Last Filed Vital Signs Vital Sign Reading Time Taken Comments Blood Pressure 100/60 09/11/2024 1:33 PM EST Pulse 59 09/11/2024 1:33 PM EST Temperature 36.5 ??C (97.7 ??F) 09/11/2024 1:33 PM ES T Respiratory Rate 18 09/11/2024 1:33 PM EST Oxygen Saturation 99% 09/11/2024 1:33 PM EST Inhaled Oxygen Concentration - - Weight 57.2 kg (126 lb) 09/11/2024 1:33 PM EST Height 162.6 cm (5' 4 ) 09/11/2024 1:33 PM EST Body Mass Index 21.63 09/11/2024 1:33 PM EST Plan of Treatment Upcoming Encounters Date Type Department Care Team (Late st Contact Info) Description 09/17/2025 4:30 PM EST Office Visit [facility] [address] [place] [address] Chary Brooks, DOROTHY [address] [place] [address] Health Maintenance Due Date Last Done Comments Alcohol/Substance Use Screening 1999 Hepatitis B Vaccines (1 of 3 - 19+ 3-dose series) 2006 COVID-19 Vaccine ( season) 2024 08/27/2021, 02/02/2021, 01/05/2021 Influenza Vaccine (#1) 2024 , 07/24/2020, 10/22/2019, Additional history exists Cervical Cancer Screening 07/30/2024 HPV/Cotest 07/30/2024 Depression Screening 09/11/2025 09/11/2024, 09/11/20 24 Family Planning (PISQ) 09/11/2025 09/11/2024 SDOH Screening 09/11/2025 09/11/2024 Tobacco Screening 09/11/2025 09/11/2024 Pap Smear 02/01/2029 02/02/2024, 07/11, 02/12/2016 DTaP/Tdap/Td Vaccines (3 - Td or Tdap) 04/09/2031 04/09/2021, 06/03/2011 Zoster Vaccines (1 of 2) 2037 RSV Patients and Patients Aged 60 years or older (1 - 1-dose 75+ series) 2062 HIV Screening Completed 07/08/2022, 09/23/2021 Hepatitis C Screening Completed 07/08/2022 , 07/08/2022, 09/23/2021 HIB Vaccines Aged Out No longer eligi ble based on patient's age to complete this topic HPV Vaccines Aged Out No longer eligi ble based on patient's age to complete this topic Hepatitis A Vaccines Aged Out No long er eligible based on patient's age to complete this topic IPV Vaccines Aged Out No longer eligi ble based on patient's age to complete this topic Meningococcal Vaccine Aged Out No abdi enmanuel eligible based on patient's age to complete this topic Pneumococcal Vaccine: Pediatrics (0 to 5 Years) and At-Risk Patients (6 to 49) Years) Aged Out No longer eligible based on patient's age to complete this topic RSV under 20 months Aged Out No longe r eligible based on patient's age to complete this topic Rotavirus Vaccines Aged Out No longer eligible based on patient's age to complete this topic Procedures Procedure Name Priority Date/Time Associated Diagnosis Comments HM PAP/HPV Routine 02/02/2024 9:54 AM EDT JONATAN HISTORICAL HEPATITIS C ANTIBODY, QUALITATIVE Routine 07/08/2022 1:23 PM EDT HIV 1/2 ANTIGEN/ANTIBODY, FOURTH GENERATION W/RFL Routine 07/08/2022 1:23 PM EDT from Last 3 Months or Most Recently Relevant to Health Maintenance Results * HM PAP/HPV (02/02/2024 9:54 AM EDT) Historical Provider MD HEALTH MAINTENANCE Final Result * Hepatitis C antibody, qualitative (07/08/2022 1:23 PM EDT) HCV NON-REACTIV E NON-REACTI VE CONVERTED LEGACY LABS 07/08/2022 1:23 PM EDT Mikki Keller HISTORICAL/NON ORDERABLE LABS F inal Result Performing Organization Address City/[facility]/ZIP Co de Phone Number CONVERTED LEGACY LABS * HIV-1/2 antigen/antibody (07/08/2022 1:23 PM EDT) HIV-1/2 ANTIGEN/ANTIBO DY NON-REACTI VE NON-REACTI VE CONVERTED LEGACY LABS 07/08/2022 1:23 PM EDT Mikki Keller LAB BLOOD ORDERABLES Final Resu lt Performing Organization Address City/[facility]/ZIP Co de Phone Number CONVERTED LEGACY LABS from Last 3 Months or Most Recently Relevant to Health Maintenance Insurance BS PPO * Guarantor: Omayra Dominguez Account Type Relation to Patient Date of Phone Billing Address Dental Self Care Teams Track Coach Relationship Specialty Start Date End Date Chary Brooks CNP [address] [facility] [place] [address] PCP - General Family Medicine 04/24/23
== END 2024-11-28 09:47 | disposition home or self-care (01) ==
PROVIDERS: PCP Nurse Practitioner Family; Visit Provider Neurological Surgery
DX: M54.9 Dorsalgia, unspecified (principal); M46.1 Sacroiliitis, not elsewhere classified
CPT/HCPCS: 99204

== ENCOUNTER → 2024-11-28 09:03 | Outpatient (BNVA) | payer BC, SELFPAY | PROVIDERS: PCP Nurse Practitioner Family; Visit Provider Neurological Surgery ==

== ENCOUNTER → 2024-12-22 09:20 | Outpatient (BNV) | payer BC, SELFPAY | PROVIDERS: PCP Internal Medicine; Visit Provider Radiology Diagnostic Radiology | DX: M51.27 Other intervertebral disc displacement, lumbosacral region (principal); M51.A1 Intervertebral annulus fibrosus defect, small, lumbar region | CPT/HCPCS: 72148 ==

== ENCOUNTER 2024-12-22 09:25 | Outpatient (REF) | payer BC, SELFPAY ==
--- NOTE | ~2024-12-22 | MR_ITS ---
EXAMINATION: MR LUMBAR SPINE WITHOUT IV CONTRAST History: M54.9 - Dorsalgia, unspecified Technique: Sagittal T1, T2 and STIR, and axial T1 and T2 weighted images of the lumbar spine were obtained per departmental protocol. Comparison: None available. Findings: The vertebral bodies maintain normal height, alignment, and marrow signal intensity. The intervertebral discs maintain normal height and hydration. At T12-L1,there is no evidence of disc herniation, central spinal stenosis, or neural foraminal narrowing. At L1-2, there is no evidence of disc herniation, central spinal stenosis, or neural foraminal narrowing. At L2-3, there is no evidence of disc herniation, central spinal stenosis, or neural foraminal narrowing. At L3-4, there is a mild disc bulge. There is no central spinal or neural foraminal stenosis. At L4-5, there is a left lateral annular tear. There is no central spinal or neural foraminal stenosis. At L5-S1, there is a small central disc protrusion which indents the thecal sac. There is no central spinal or neural foraminal stenosis. The conus terminates at the L1-2 level and demonstrates normal signal intensity. The visualized paraspinal soft tissues are unremarkable. MR/MR lumbar spine wo con Impression: 1. Left lateral annular tear at L4-5. 2. Small central disc protrusion at L5-S1. Electronically signed by: Jarrell Chapa MD 12/24/2024 08:45 AM EDT
--- OUTSIDE RECORDS SUMMARY | 2024-12-22 09:27 | XMS_ITS | Data Portability ---
Author Organization [facility], [facility] [place] Address [address] [place] [address] Care Team Providers Care Computer System Specialist Name Role Phone CLAUDETTE FRANCOIS Primary Care Provider Assessment Encounter Date Assessment Date Assessment LastModified by Organization Details LastModified Time 11/05/2024 11/05/2024 Assessment: Patient fatigued with all [...] requires tactile cues initially to prevent lumbar extension/scapul ar winging, corrects well after cues. Plan: Continued PT is recommended at 2x/week for 6 weeks to decrease pain, improve ROM, increase strength, and optimize shoulder mechanics for functional ADL's. PROM/AAROM/AROM now No lifting heavier than coffee cup x 4-6 weeks Strengthening at 4-6 weeks once full ROM [email or web address] Not available 11/13/2024 08:06:44 11/14/2024 11/14/2024 Assessment: [...] Strengthening at 4-6 weeks once full ROM [email or web address] Not available 11/14/2024 16:24:25 12/03/2024 12/03/2024 Assessment: Able to complete sport cord shoulder extension without pain, requires cues to prevent upper trap compensation when performing. Fatigues quickly with all strengthening this session. Plan: DC to HEP next session. PROM/AAROM/AROM now No lifting heavier than coffee cup x 4-6 weeks Strengthening at 4-6 weeks once full ROM [email or web address] Not available 12/03/2024 17:19:56 Plan of Treatment Reminders Order Date Submit Date Provider Last Modified By Organization Details Last Modified Time Details Appointments None record ed. Lab None record ed. Referral None record [...] tis of joint of left shoulder region [id number] 08 Active 2023 Norma yao [place] - [facility] 4 15:56:19 Internal impingement of left shoulder [id number] 105 Active 2023 Norma yao [place] - [facility] 4 15:56:19 Impingement syndrome of left shoulder region [id number] 04 Active 2023 Yvonne Rush i, PA-C [address] [facility] [address], [place], [place], [address], [facility] 4 09:59:40 Problem Notes None recorded. Procedures Surgical History Date Name Laterality Status Provider Name and Address Organization Details Recorded Time 5 19138 Therapeutic Exercise (1:1) completed Hayde Diallo, PT [address], [place], [address], [facility] 10/31/2024 10:21:10 5 84888: Hot or Cold Pack completed Hayde Diallo, PT [address], [place], [address], [facility] 10/31/2024 10:21:10 5 07109 Therapeutic Exercise (1:1) completed Hayde Diallo, PT [address], [place], [address], [facility] 10/24/2024 10:38:01 5 36973: Hot or Cold Pack completed Hayde Diallo, PT [address], [place], [address], [facility] 10/24/2024 10:38:01 5 78574 Therapeutic Exercise (1:1) completed Ladonna Shante, MANAGER OCCUPATIONAL [address], [place], [address], [facility] 10/22/2024 18:32:59 5 87892: Hot or Cold Pack completed Ladonna Shante, MANAGER OCCUPATIONAL [address], [place], [address], [facility] 10/22/2024 18:33:13 5 82401 Therapeutic Exercise (1:1) cancelled Hayde Diallo, PT [address], [place], [address], [facility] 10/17/2024 10:28:14 5 49884: Hot or Cold Pack cancelled Hayde Diallo, PT [address], [place], [address], [facility] 10/17/2024 10:28:14 5 65031 Therapeutic Exercise (1:1) completed Hayde Diallo, PT [address], [place], [address], [facility] 10/15/2024 10:22:32 5 86335: Hot or Cold Pack completed Hayde Diallo, PT [address], [place], [address], [facility] 10/15/2024 10:22:32 5 26850 Therapeutic Exercise (1:1) completed Hayde Diallo, PT [address], [place], [address], [facility] 10/12/2024 09:25:21 5 03907: Hot or Cold Pack completed Hayde Diallo, PT [address], [place], [address], [facility] 10/11/2024 18:48:41 4 54443 Therapeutic Exercise (1:1) completed Hayde Diallo, PT [address], [place], [address], [facility] 10/08/2024 15:03:29 4 92609: Hot or Cold Pack completed Hayde Diallo, PT [address], [place], [address], [facility] 10/08/2024 18:39:53 4 89632 Therapeutic Exercise (1:1) completed Hayde Carman, PT [address], [place], [address], [facility] 09/26/2024 17:19:50 4 54922: Hot or Cold Pack completed Hayde Carman, PT [address], [place], [address], [facility] 09/26/2024 17:19:50 4 28810 Therapeutic Exercise (1:1) completed Hayde Carman, PT [address], [place], [address], [facility] 09/24/2024 18:42:47 4 39665: Hot or Cold Pack completed Hayde Carman, PT [address], [place], [address], [facility] 09/24/2024 10:40:39 4 50163 Therapeutic Exercise (1:1) completed Ladonna Shante, MANAGER OCCUPATIONAL [address], [place], [address], [facility] 09/21/2024 09:43:39 4 50626: Hot or Cold Pack completed Ladonna Shante, MANAGER OCCUPATIONAL [address], [place], [address], [facility] 09/21/2024 09:43:50 4 52357 Therapeutic Exercise (1:1) completed Ladonna Shante, MANAGER OCCUPATIONAL [address], [place], [address], [facility] 09/17/2024 18:45:34 4 48063: Hot or Cold Pack completed Ladonna Shante, MANAGER OCCUPATIONAL [address], [place], [address], [facility] 09/17/2024 18:45:45 4 95015 Therapeutic Exercise (1:1) completed Hayde Diallo, PT [address], [place], [address], [facility] 09/14/2024 09:15:12 4 13586: Hot or Cold Pack completed Hayde Diallo, PT [address], [place], [address], [facility] 09/14/2024 09:12:25 4 65858 Therapeutic Exercise (1:1) completed Hayde Landrum, PT [address], [place], [address], [facility] 09/12/2024 18:53:38 4 70773: Low complexity PT Eval completed Hayde Landrum, PT [address], [place], [address], [facility] 09/12/2024 13:09:53 4 Sports Shoulder completed Yvonne Fuentes PA-C [address], [place], [address], [facility] 03/20/2024 09:59:34 Imaging Results None recorded. Procedure Notes None recorded. Medical Equipment None Reported. Allergies Allergen ID Allergen Name Allergen Category Reaction Reaction Severity Criticality Documentation Date Start Date Code Code System Note Provider Name and Address Organization Details Recorded Time 337756 Ceclor medicatio n Not available Not available Not available 03/19/2024 5 RxNorm KENDRICK CONTRERAS [facility] 4 14:54:18 Medications Name Sig Start Date Stop [...] Not Available Not Available No t Available bisacodyl 5 mg tablet,hayley yed release TAKE 4 TABLETS ORALLY PATIENT HAS INSTRUCTI ONS 1 DAY active Not Available Not Available No [...] Tobacco Smoking Status Never Smoker KENDRICK yao [place] - [facility] 03/19/2024 11:52:20 What Is Your Level Of [...] What Is Your Relationship Status? Domestic Partner Information not available 03/19/2024 Do You Use Any Illicit Or Recreational Drugs? No Information not available 03/19/2024 Do You Or Have You Ever Used Any Other Forms Of Tobacco Or Nicotine? No Information not available 03/19/2024 Sex: Unknown Functional Status None recorded. Mental Status None recorded. Family History Nothing Reported. Medical History Condition Response Allergies/Hayfever N Coronary Artery Disease N Breathing or lung disorders N Anxiety/Depression N Emphysema N Nerve Disorders N Thyroid Problems N COPD N Pacemaker N Kidney/Bladder Problems N Anemia N Vascular Disease N Heart Trouble N Heart Attack (HI) N Gastrointestinal Disease N Cholesterol N Diabetes N Autoimmune disease N Bleeding Disorder N Orthotics N Seizures/Epilepsy N Arthritis N Blood Clot N AIDS/HIV N Congestive Heart Failure (CHF) N Acid Reflux (GERD) N Cancer N Stroke N Asthma N Circulation Problems N Peripheral Vascular Disease N Sleep Apnea N Hepatitis N Heart Disease N Rheumatoid Arthritis N Pulmonary Embolism N Arrhythmia N Headaches Y Fibromyalgia N Hypertension N Osteoporosis N Gynecological HistoryNo gynecological history recorded. Obstetrics History GPAL:G 0 P 0 0 0 0 Past Encounters Encounter ID Performer Location Encounter Start Date Encounter Closed Date Diagnosis/Indication Diagnosis SNOMED-CT Code Diagnosis ICD10 Code Diagnosis Note [id number] MIKI Perez [address] [place] [address] 03/19/2024 14:47:34 04/09/2024 09:13:22 Pain of left shoulder joint [id number] 4413648 M25.512 Impingemen t syndrome of left shoulder region 6160226859 10284 M75.42 [id number] MD Ho Diaz [address]nd floor [address] [place] [address] 06/20/2024 13:09:18 07/13/2024 09:26:50 Impingement syndrome of left shoulder region 3645868697 22801 M75.42 [id number] Yvonne Fuentes PA-C [facility] [address] [place] [address] 08/31/2024 09:06:43 09/19/2024 10:14:16 Postoperative visit [id number] Z48.89 [id number] Hayde Carman, PT [facility] [address] [place] [address] 09/12/2024 17:37:53 09/13/2024 11:17:39 Impingement syndrome of left shoulder region 4174188257 24301 M75.42 [id number] Hayde Diallo, PT [facility] [address] [place] [address] 09/14/2024 08:29:22 09/14/2024 09:22:03 Impingement syndrome of left shoulder region 1579248406 45866 M75.42 [id number] Hayde Diallo, PT [facility] [address] [place] [address] 09/17/2024 17:30:35 09/18/2024 07:49:46 Impingement syndrome of left shoulder region 7699531043 48636 M75.42 [id number] Hayde Landrum, PT [facility] [address] [place] [address] 09/21/2024 08:29:29 09/21/2024 09:56:01 Impingement syndrome of left shoulder region 1345820785 66252 M75.42 [id number] Hayde Landrum, PT [facility] [address] [place] [address] 09/24/2024 17:56:01 09/25/2024 07:21:15 Impingement syndrome of left shoulder region 4108200892 06854 M75.42 [id number] Hayde Landrum, PT [facility] [address] [place] [address] 09/27/2024 08:26:58 09/27/2024 09:28:04 Impingement syndrome of left shoulder region 9808175165 06870 M75.42 [id number] Hayde Landrum, PT [facility] [address] [place] [address] 10/08/2024 17:52:00 10/09/2024 06:52:59 Impingement syndrome of left shoulder region 4525733972 71514 M75.42 [id number] MIKI Hendrickson [address] [facility] [address] 10/11/2024 08:21:54 10/26/2024 13:42:31 Postoperative visit 869835405 Z48.89 [id number] Haydemitchel Landrum, PT [facility] [address] [place] [address] 10/12/2024 08:22:41 10/12/2024 12:46:32 Impingement syndrome of left shoulder region 3291759982 06206 M75.42 [id number] Hayde Landrum, PT [facility] [address] [place] [address] 10/15/2024 17:52:26 10/16/2024 07:28:05 Impingement syndrome of left shoulder region 8172287198 24478 M75.42 [id number] Hayde Carman, PT [facility] [address] [place] [address] 10/22/2024 17:23:01 10/23/2024 07:00:12 Impingement syndrome of left shoulder region 0974246575 68283 M75.42 [id number] Hayde Carman, PT [facility] [address] [place] [address] 10/24/2024 17:50:32 10/25/2024 15:44:47 Impingement syndrome of left shoulder region 0694767940 42684 M75.42 [id number] Hayde Carman, PT [facility] [address] [place] [address] 10/31/2024 17:51:22 11/01/2024 16:14:03 Impingement syndrome of left shoulder region [id number] 38138 M75.42 [id number] Hayde Diallo, PT [facility] [address] [place] [address] 11/02/2024 08:26:05 11/02/2024 09:33:17 Impingement syndrome of left shoulder region 0863807888 96005 M75.42 [id number] Hayde Carman, PT [facility] [address] [place] [address] 11/05/2024 17:51:18 11/06/2024 07:02:15 Impingement syndrome of left shoulder region 7111565567 12429 M75.42 [id number] Hayde Diallo, PT [facility] [address] [place] [address] 11/07/2024 16:21:44 11/07/2024 17:39:18 Impingement syndrome of left shoulder region 9784381077 50473 M75.42 [id number] Hayde Diallo, PT [facility] [address] [place] [address] 11/12/2024 17:55:11 11/13/2024 11:07:39 Impingement syndrome of left shoulder region 5864750596 81121 M75.42 [id number] Hayde Landrum, PT [facility] [address] [place] [address] 11/14/2024 15:25:09 11/14/2024 16:42:28 Impingement syndrome of left shoulder region 3047907149 78503 M75.42 [id number] Hayde Landrum, PT [facility] [address] [place] [address] 12/03/2024 16:27:32 12/03/2024 17:23:26 Impingement syndrome of left shoulder region 3948463202 66667 M75.42 Health Concerns Section Related Observation LastModified by Organization Detai ls LastModified Time None Recorded Concern Status LastModified by Organization Details LastModified Time None Recorded Advance Directives Directive None Recorded Payers Encounter Date Sequence Insurance Name Policy Number Policy Kaur Covered Member ID Kaur Member ID Guarantor Name 11/05/2024 1 [place] [id number] Omayra Dominguez [id number] Omayra Dominguez 11/07/2024 1 [place] [id number] Omayra Dominguez [id number] Omayra Alberto 11/12/2024 1 [place] [id number] Omayra Dominguez [id number] Omayra Dominguez 11/14/2024 1 [place] [id number] Omayra Dominguez [id number] Omayraluis m Dominguez 12/03/2024 1 [place] [id number] Omayra Dominguez [id number] Omayra Dominguez Notes Date Note Type Note Provider Name and Address Organization Details Recorded Time 11/05/2024 text/html Patient reports she continues to have muscle soreness after her last session. Ladonna Frey, MANAGER OCCUPATIONAL [address], [place], [address], [facility] 11/05/2024 18:55:39 11/07/2024 text/html Patient reports she had increased muscle soreness after last session. Ladonna Frey, MANAGER OCCUPATIONAL [address], [place], [address], [facility] 11/07/2024 17:39:03 11/12/2024 text/html Patient denies (L) shoulder pain on arrival. Continues to reports mild muscle soreness after each session. Haydemitchel Landrum, PT [address], [place], [address], [facility] 11/13/2024 08:06:57 11/14/2024 text/html Patient reports (L) shoulder feeling good on arrival. Continues to experience mild muscle soreness after strengthening. Hayde Landrum, PT [address], [place], [address], [facility] 11/14/2024 16:27:12 12/03/2024 text/html Patient reports being sick all last week, wasn't able to perform much HEP. Having increased AC joint pain when performing shoulder extension with TB. Hayde Diallo, PT [address], [place], [address], [facility] 12/03/2024 17:20:10 OBGyn Episode No OBEpisode recorded.
--- OUTSIDE RECORDS SUMMARY | 2024-12-22 09:27 | XMS_ITS | Encounter Summary ---
Author Organization [employer] Address [address] [place] [address] [address] [place] [address] Care Team Providers Care Emotional Disabilities Teacher Name Role Phone Chary Brooks CNP Primary Care Provider [phone] Encounter Details Date Type Department Care Team [...] Description 09/17/2025 4:30 PM EST Office Visit [facility] MEDICAL [address] [place] [address] Chary Brooks CNP [address] [place] [address] documented as of this encounter Visit Diagnoses Not on filedocumented in this encounter Care Teams Emotional Disabilities Teacher Relationship Specialty Start Date End Date Chary Brooks CNP [address] [place] [address] PCP - General Family Medicine 04/24/23 documented as of this encounter
--- OUTSIDE RECORDS SUMMARY | 2024-12-22 09:27 | XMS_ITS | Encounter Summary ---
Author Organization [employer] Address [address] [place] [address] [address] [place] [address] Care Team Providers Care Belt Machine Operator Name Role Phone Chary Brooks CNP Primary Care Provider [phone] Encounter Details Date Type Department Care Team [...] Description 09/17/2025 4:30 PM EST Office Visit [facility] MEDICAL [address] [place] [address] Chary Brooks CNP [address] [place] [address] documented as of this encounter Visit Diagnoses Not on filedocumented in this encounter Care Teams Belt Machine Operator Relationship Specialty Start Date End Date Chary Brooks CNP [address] [place] [address] PCP - General Family Medicine 04/24/23 documented as of this encounter
--- OUTSIDE RECORDS SUMMARY | 2024-12-22 09:27 | XMS_ITS | Clinical Summary ---
Author Organization [employer] Address [address] [place] [address] [address]t [place] [address] Care Team Providers Care Memory Care Program Resident Name Role Phone Chary Brooks CNP Primary Care Provider [phone] Allergies Active Allergy Reactions Criticality Noted Date [...] Encounters Date Type Department Care Team Description 12/07/2024 Orders Only [facility] Information Management [address] [place] [address] Chary Brooks CNP from Last 3 Months Immunizations Name Administration [...] PM EST Office Visit [facility] MEDICAL [address] [place] [address] Chary Brooks, DRY DIP WORKER [address] [place] [address] Health Maintenance Due Date Last Done Comments [...] Screening 09/11/2025 09/11/2024 Pap Smear 02/01/2029 02/02/2024, 10/2 10/2018, 02/12/2016 DTaP/Tdap/Td Vaccines (3 - Td or [...] Procedure Name Priority Date/Time Associated Diagnosis Comments COLONOSCOPY Routine 12/05/2024 11:16 AM EST PAP/HPV Routine 02/02/2024 9:54 AM EDT [facility] HISTORICAL HEPATITIS C ANTIBODY, QUALITATIVE Routine 07/08/2022 1:23 PM EDT HIV 1/2 ANTIGEN/ANTIBODY, FOURTH GENERATION W/RFL Routine 07/08/2022 1:23 PM EDT from Last 3 Months or Most Recently Relevant to Health Maintenance Results * Hm Colonoscopy (12/05/2024 11:16 AM EST) us Chary Brooks DRY DIP WORKER HEALTH MAINTENANCE Final Resu lt * HM PAP/HPV (02/02/2024 9:54 AM EDT) Historical Provider MD HEALTH MAINTENANCE Final Result * Hepatitis C antibody, qualitative (07/08/2022 1:23 PM EDT) HCV NON-REACTIV E NON-REACTI VE CONVERTED LEGACY LABS 07/08/2022 1:23 PM EDT Mikki Keller HISTORICAL/NON ORDERABLE LABS F inal Result Performing Organization Address City/[facility]/ZIP Co de Phone Number CONVERTED LEGACY LABS * HIV-1/2 antigen/antibody (07/08/2022 1:23 PM EDT) HIV-1/2 ANTIGEN/ANTIBO DY NON-REACTI VE NON-REACTI VE CONVERTED LEGACY LABS 07/08/2022 1:23 PM EDT Mikki Keller LAB BLOOD ORDERABLES Final Resu lt Performing Organization Address [facility]/ZIP Co de Phone Number CONVERTED LEGACY LABS from Last 3 Months or Most Recently Relevant to Health Maintenance Insurance [facility] PPO * Guarantor: Omayra Dominguez Account Type Relation to Patient Date of Phone Billing Address [address] [place] [address] Care Teams Memory Care Program Resident Relationship Specialty Start Date End Date Chary Brooks CNP [address] [place] [address] PCP - General Family Medicine 04/24/23
--- OUTSIDE RECORDS SUMMARY | 2024-12-22 09:27 | XMS_ITS | Encounter Summary ---
Author Organization [employer] Address [address] [facility] 7t [place] [address] Care Team Providers Care Silk Washing Machine Operator Name Role Phone Chary Brooks DOROTHY Primary Care Provider [phone] Encounter Details Date Type Department Care Team (Late st Contact Info) Description 09/16/2024 Orders Only [place] [facility] MEDICAL [address] [place] [address] Provider, MD Margarito Social History Tobacco Use [...] Description 09/17/2025 4:30 PM EST Office Visit [facility] MEDICAL [address] [facility] [place] [address] Chary Brooks CNP [address] [facility] [place] [address] documented as of this encounter Procedures Procedure [...] on filedocumented in this encounter Care Teams Silk Washing Machine Operator Relationship Specialty Start Date End Date Chary Brooks CNP [address] [facility] [place] [address] PCP - General Family Medicine 04/24/23 documented as of this encounter
--- OUTSIDE RECORDS SUMMARY | 2024-12-22 09:27 | XMS_ITS ---
Author Organization [facility] Address [address] [place] [address] Care Team Providers Care Caddy/Caddie Supervisor Name Role Phone Dinah Stevenson MD Primary Care Provider Eddie Gomes [phone] Allergies Allergen (clinical drug ingredient) Drug/Non Drug [...] 11/02/2023 Encounters Encounter Location Date Provider Diagnosis [facility] [address] [place] [address] 11/02/2023 Eddie Bautista Peroneal tendinitis, right M76.71 [...] Omayra CALABRESE EDOB: [birth year] (37 yo F)Acc No.[id number]:11/02/2023 Progress Note Patient:?Omayra Calabrese Provider:?Eddie Bautista DPM :1985???Age:37 Y???Sex:Female D ate:11/02/2023 Address[address] [facility], [place], [place] Pcp:Dinah Stevenson MD Subjective: * Chief Complaints: [...] ray : Foot, right 3V * Procedure Codes:?65034 X-RAY EXAM OF RIGHT FOOT 3V, Modifiers: [...] painful condition.?Physical Therapy:?Discussed the potential short and termite control service representative benefits of physical therapy including pain relief, [...] DPM Date:? 024 Generated for Karen heredia/Pilo/Franchesca on:?12/22/2024 09:27 AM EDT History and Physical Notes * HPI (History [...]
--- OUTSIDE RECORDS SUMMARY | 2024-12-22 09:27 | XMS_ITS | Encounter Summary ---
Author Organization [employer] Address [address] [place] [address] Care Team Providers Care Kindergarten Prep Teacher Name Role Phone Chary Brooks CNP Primary Care Provider [phone] Encounter Details Date Type Department Care Team (Late st Contact Info) Description 12/07/2024 Orders Only [facility] [address] [place] [address] Chary Brooks CNP [address] [place] [address] Social History Tobacco Use Types Packs/Day Years [...] Description 09/17/2025 4:30 PM EST Office Visit [facility] [address] [place] [address] Chary Brooks CNP [address] [place] [address] documented as of this encounter Procedures Procedure Name Priority Date/Time Associated Diagnosis Comments HM COLONOSCOPY Routine 12/05/2024 11:16 AM EST documented in this encounter Results * Hm Colonoscopy (12/05/2024 11:16 AM EST) Chary Brooks CNP HEALTH MAINTENANCE Final Resu lt documented in this encounter Visit Diagnoses Not on filedocumented in this encounter Care Teams Kindergarten Prep Teacher Relationship Specialty Start Date End Date Chary Brooks CNP [address] [place] [address] PCP - General Family Medicine 04/24/23 documented as of this encounter
--- OUTSIDE RECORDS SUMMARY | 2024-12-22 09:28 | XMS_ITS | Patient Health Record ---
Author Organization [facility] Address [address] [address] [facility] [place] [address] Care Team Providers Care Applied Computer Science Professor Name Role Phone Dinah Stevenson MD Primary Care Provider Eddie Gomes Unavailable [phone] Allergies Allergen (clinical drug ingredient) Drug/Non Drug [...] Status Risk Notes Problem Acquired hallux valgus (05650409) Hallux valgus (acquired), left foot (M20.12) Active confirmed Problem Acquired hallux valgus (53580046) Hallux valgus (acquired), right foot (M20.11) Active confirmed Problem Acquired hammer toe of right foot ([id number] 105) Other hammer toe(s) (acquired), right foot (M20.41) Active confirmed Problem Acquired hallux rigidus (2889404) Hallux rigidus, right foot (M20.21) Active confirmed Plan Of Treatment Pending Test Test Name Order Date X ray : Foot, left 3V 11/25/2022 X ray : Foot, right 3V 11/02/2023 Insurance Providers Payer Name Payer Address Payer Phone Subscriber Number Group Number Insured Name Patient Relationship to Insured Coverage Start Date Coverage End Date [facility] [employer] [address] [place] [address] [phone] [id number] Omayra Dwyer Self - patient is the insured Medical (General) History Medical History History ICD Code Headaches/Migraines Plantar warts Surgical History Surgery Date(Month/Year)
--- OUTSIDE RECORDS SUMMARY | 2024-12-22 09:28 | XMS_ITS | Continuity of Care Document ---
Author Organization [facility], [facility] Address [address] [place] [address] Care Team Providers Care Bilingual Speech Language Pathologist Name Role Phone CLAUDETTE FRANCOIS Primary Care Provider Assessment Encounter Date Assessment Date Assessment LastModified by Organization Details LastModified Time 12/03/2024 12/03/2024 Assessment: Able to complete sport cord shoulder extension without pain, requires cues to prevent upper trap compensation when performing. Fatigues quickly with all strengthening this session. Plan: DC to HEP next session. PROM/AAROM/AROM now No lifting heavier than coffee cup x 4-6 weeks Strengthening at 4-6 weeks once full ROM [id number] Not available 12/03/2024 17:19:56 Plan of Treatment [...] tis of joint of left shoulder region 8285734601664 08 Active 2023 Norma yao [facility] 4 15:56:19 Internal impingement of left shoulder 4941446890252 105 Active 2023 Norma yao [facility] 15:56:19 Impingement syndrome of left shoulder region 0377395637730 04 Active 2023 Yvonne Wilczynsk i, PA-C [address], [place], [address], [facility] 4 09:59:40 Problem Notes None recorded. Procedures Surgical History Date Name Laterality Status Provider Name and Address Organization Details Recorded Time 5 13903 Therapeutic Exercise (1:1) completed Hayde Diallo, PT [address], [place], [address], [facility] 10/31/2024 10:21:10 5 41781: Hot or Cold Pack completed Hayde Boyce, PT [address], [place], [address], [facility] 10/31/2024 10:21:10 5 39166 Therapeutic Exercise (1:1) completed Hayde Diallo, PT [address], [place], [address], [facility] 10/24/2024 10:38:01 5 60111: Hot or Cold Pack completed Hayde Diallo, PT [address], [place], [address], [facility] 10/24/2024 10:38:01 5 41804 Therapeutic Exercise (1:1) completed Ladonna Shante, MANAGER RETAIL [address], [place], [address], [facility] 10/22/2024 18:32:59 5 95892: Hot or Cold Pack completed Ladonna Shante, MANAGER RETAIL [address], [place], [address], [facility] 10/22/2024 18:33:13 5 59723 Therapeutic Exercise (1:1) cancelled Hayde Diallo, PT [address], [place], [address], [facility] 10/17/2024 10:28:14 5 02645: Hot or Cold Pack cancelled Hayde Diallo, PT [address], [place], [address], [facility] 10/17/2024 10:28:14 5 80987 Therapeutic Exercise (1:1) completed Hayde Boyce, PT [address], [place], [address], [facility] 10/15/2024 10:22:32 5 32878: Hot or Cold Pack completed Hayde Diallo, PT [address], [place], [address], [facility] 10/15/2024 10:22:32 5 22356 Therapeutic Exercise (1:1) completed Hayde Diallo, PT [address], [place], [address], [facility] 10/12/2024 09:25:21 5 71091: Hot or Cold Pack completed Hayde Boyce, PT [address], [place], [address], [facility] 10/11/2024 18:48:41 4 42473 Therapeutic Exercise (1:1) completed Hayde Boyce, PT [address], [place], [address], [facility] 10/08/2024 15:03:29 4 88060: Hot or Cold Pack completed Hayde Diallo, PT [address], [place], [address], [facility] 10/08/2024 18:39:53 4 13605 Therapeutic Exercise (1:1) completed Hayde Diallo, PT [address], [place], [address], [facility] 09/26/2024 17:19:50 4 96604: Hot or Cold Pack completed Hayde Diallo, PT [address], [place], [address], [facility] 09/26/2024 17:19:50 4 13778 Therapeutic Exercise (1:1) completed Hayde Boyce, PT [address], [place], [address], [facility] 09/24/2024 18:42:47 4 50104: Hot or Cold Pack completed Hayde Diallo, PT [address], [place], [address], [facility] 09/24/2024 10:40:39 4 63478 Therapeutic Exercise (1:1) completed Ladonna Shante, MANAGER RETAIL [address], [place], [address], [facility] 09/21/2024 09:43:39 4 59123: Hot or Cold Pack completed Ladonna Shante, MANAGER RETAIL [address], [place], [address], [facility] 09/21/2024 09:43:50 4 46272 Therapeutic Exercise (1:1) completed Ladonna Shante, MANAGER RETAIL [address], [place], [address], [facility] 09/17/2024 18:45:34 4 21359: Hot or Cold Pack completed Ladonna Shante, MANAGER RETAIL [address], [place], [address], [facility] 09/17/2024 18:45:45 4 60776 Therapeutic Exercise (1:1) completed Hayde Diallo, PT [address], [place], [address], [facility] 09/14/2024 09:15:12 4 25183: Hot or Cold Pack completed Hayde Boyce, PT [address], [place], [address], [facility] 09/14/2024 09:12:25 4 95228 Therapeutic Exercise (1:1) completed Hayde Boyce, PT [address], [place], [address], [facility] 09/12/2024 18:53:38 4 20943: Low complexity PT Eval completed Hayde Landrum, PT [address], [place], [address], [facility] 09/12/2024 13:09:53 4 Sports Shoulder completed Yvonne Fuentes PA-C [address], [place], [address], [facility] 03/20/2024 09:59:34 Imaging Results None recorded. Procedure Notes None recorded. Medical Equipment None Reported. Allergies Allergen ID Allergen Name Allergen Category Reaction Reaction Severity Criticality Documentation Date Start Date Code Code System Note Provider Name and Address Organization Details Recorded Time 011038 Ceclor medicatio n Not available Not available Not available 03/19/202402767 5 RxNorm KENDRICK CONTRERAS [facility] 4 14:54:18 Medications Name Sig Start Date [...] Time Tobacco Smoking Status Never Smoker KENDRICK BEST-TERRY yao [place] [facility] 03/19/2024 11:52:20 What Is Your Level [...] Disease N Heart Trouble N Heart Attack (DC) N Gastrointestinal Disease N Cholesterol N Diabetes [...] SNOMED-CT Code Diagnosis ICD10 Code Diagnosis Note [id number] Hayde Boyce, PT [facility] [address] [place] [address] 11/02/2024 08:26:05 11/02/2024 09:33:17 Impingement syndrome of left shoulder region 3573902137 35013 M75.42 [id number] Hayde Boyce, PT [facility] [address] [place] [address] 11/05/2024 17:51:18 11/06/2024 07:02:15 Impingement syndrome of left shoulder region 5664217784 51981 M75.42 [id number] Hayde Diallo, PT [facility] [address] [place] [address] 11/07/2024 16:21:44 11/07/2024 17:39:18 Impingement syndrome of left shoulder region 9029504415 88494 M75.42 [id number] Hayde Boyce, PT [facility] [address] [place] [address] 11/12/2024 17:55:11 11/13/2024 11:07:39 Impingement syndrome of left shoulder region 0490489277 33964 M75.42 [id number] Hayde Diallo, PT [facility] [address] [place] [place] [address] 11/14/2024 15:25:09 11/14/2024 16:42:28 Impingement syndrome of left shoulder region 1926984110 84422 M75.42 [id number] Hayde Diallo, PT [facility] [address] [place] [place] [address] 12/03/2024 16:27:32 12/03/2024 17:23:26 Impingement syndrome of left shoulder region 4313300047 87697 M75.42 Health Concerns Section Related Observation LastModified by Organization Detai ls LastModified Time None Recorded Concern Status LastModified by Organization Details LastModified Time None Recorded Payers Encounter Date Sequence Insurance Name Policy Number Policy Kaur Covered Member ID Kaur Member ID Guarantor Name 12/03/2024 1 ESTRELLA-SUNI: ESTRELLA (PPO) [id number] Omayra Dominguez [id number] Omayra Dominguez Notes Date Note Type Note Provider Name and Address Organization Details Recorded Time 12/03/2024 text/html Patient reports being sick all last week, wasn't able to perform much HEP. Having increased AC joint pain when performing shoulder extension with TB. Hayde Landrum, PT [address], [place], [address], [facility] 12/03/2024 17:20:10 OBGyn Episode No OBEpisode recorded.
== END 2024-12-22 09:26 | disposition home or self-care (01) ==
LOC: HO.MRI 09:25
PROVIDERS: PCP Internal Medicine; Visit Provider Neurological Surgery
DX: M54.9 Dorsalgia, unspecified (principal)
CPT/HCPCS: 72148